=== PATIENT | male | born 1990 | race Caucasian/White ===

== ENCOUNTER 2025-07-18 06:51 | Day surgery (SDC) | payer OTHER, SELFPAY ==
[2025-07-18] VITALS (10 sets, daily range): BP systolic 100–136; BP diastolic 34–72; BMI 26.4
[2025-07-18] MEDS: TYLENOL 1000 MG PO (09:57)
[2025-07-18] MEDS: NORMOSOL-R/PLASMALYTE-A 1000 IV (09:58)
[2025-07-18] MEDS: ROXICODONE 5 MG PO (13:57)
== END 2025-07-18 14:57 | disposition home or self-care (01) ==
LOC: SDS 06:51
PROVIDERS: ATTENDING PHYSICIAN Otolaryngology
DX: J34.2 Deviated nasal septum (principal); J34.3 Hypertrophy of nasal turbinates
CPT/HCPCS: 30140; 30520